=== PATIENT | female | born 1945 | race Caucasian/White ===

== ENCOUNTER → 2016-09-29 | Outpatient (CLI) | payer OTHER ==
--- NOTE | 2016-09-29 08:52 | DI ---
PA /LATERAL CHEST X-RAY, 09/29/2016 8:05 AM : Clinical History: Chest pain. Previous Exam: None at this facility. There is no acute soft tissue or bony abnormality. Heart size is normal. There are no acute infiltrat es or effusions. The lungs are hyperinflated in this patient probably has underlying emphysema. Media stinal structures are normal. There are no pulmonary nodules. Reading: Normal chest x-ray. The lungs are hyperinflated.
== END ==
LOC: MOB RAD 08:07
PROVIDERS: ATTEND Physician Assistant Medical
DX: R07.89 Other chest pain (principal)
CPT/HCPCS: 71020; 99213

== ENCOUNTER → 2016-10-04 | Outpatient (CLI) | payer OTHER ==
[2016-10-04 17:40] LABS: BASOPHILS # (AUTO) 0.06 10*3/UL; BASOPHILS % (AUTO) 0.8 % (0-1); EOSINOPHILS # (AUTO) 0.06 10*3/UL; EOSINOPHILS % (AUTO) 0.8 % (0-8); HEMATOCRIT 40.4 % (37.0-47.0); HEMOGLOBIN 13.2 g/dL (12.0-16.0); MEAN CORPUSCULAR HEMOGLOBIN 29.9 PG (27-31); MEAN CORPUSCULAR HGB CONC 32.7 g/dL (33-37); MEAN CORPUSCULAR VOLUME 91.4 FL (81-99); MEAN PLATELET VOLUME 9.8 FL (7.4-12.2); MONOCYTES # (AUTO) 0.73 10*3/UL (0.3-0.8); MONOCYTES % (AUTO) 9.3 % (5-15); NEUTROPHILS # (AUTO) 5.85 10*3/UL; NEUTROPHILS % (AUTO) 74.7 % (50-80); RED BLOOD COUNT 4.42 10^6/uL (4.20-5.40)
[2016-10-04 17:44] LABS: PLATELET MORPHOLOGY COMMENT NORMAL MORPHOLOGY (NORM); RBC MORPHOLOGY COMMENT NORMAL MORPHOLOGY (NORM); WBC MORPHOLOGY COMMENT NORMAL MORPHOLOGY (NORM)
[2016-10-04 17:48] LABS: BLOOD UREA NITROGEN 10 mg/dL (7-22); BUN/CREATININE RATIO 16.66 (6-20); EST GLOMERULAR FILTRATION > 60 (>60 ml/min/1.73m(2)); SERUM ALBUMIN 3.7 g/dL (3.5-4.8)
== END ==
LOC: LAB 09:01
PROVIDERS: ATTEND Nurse Practitioner Family
DX: R10.84 Generalized abdominal pain (principal)
CPT/HCPCS: 80053; 82248; 85025

== ENCOUNTER → 2016-10-10 | Outpatient (CLI) | payer OTHER | LOC: MMPC 09:00 | DX: R10.84 Generalized abdominal pain (principal); R19.5 Other fecal abnormalities | CPT/HCPCS: 99213; G0463 ==

== ENCOUNTER → 2016-10-20 | Outpatient (CLI) | payer OTHER | LOC: LAB 11:23 | DX: R10.12 Left upper quadrant pain (principal); R10.11 Right upper quadrant pain; R10.13 Epigastric pain; R19.5 Other fecal abnormalities | CPT/HCPCS: 82272 ==